=== PATIENT | male | born 1995 | race Caucasian/White ===

== ENCOUNTER 2025-01-03 10:41 | Inpatient (IN) | payer OTHER ==
[~2025-01-03] VITALS: Ht 182.9 cm; Wt 90.9 kg
[2025-01-03] MEDS: NICOTINE 14 MG/24 HR TRANSDERMAL TD SCH (09:00)
[2025-01-03] MEDS: SERTRALINE HCL 25 MG TABLET PO SCH (09:00)
[2025-01-03] MEDS ORDERED: SERT25TA85 PO (11:20)
[2025-01-03 11:25] LABS: PLATELET COUNT, AUTOMATED 301 10^3/uL (150-450)
[2025-01-03 11:44] LABS: AMPHETAMINES LEVEL URINE NEGATIVE (NEGATIVE)
[2025-01-03 11:45] LABS: BARBITURATES URINE NEGATIVE (NEGATIVE); BENZODIAZEPINES URINE NEGATIVE (NEGATIVE); CANNABINOIDS URINE NEGATIVE (NEGATIVE); COCAINE METABOLITE URINE NEGATIVE (NEGATIVE); METHADONE URINE NEGATIVE (NEGATIVE); OPIATES URINE NEGATIVE (NEGATIVE); PHENCYCLIDINE URINE NEGATIVE (NEGATIVE)
[2025-01-03 11:47] LABS: ETHYL ALCOHOL (ETHANOL) < 0.003 % (0.000-0.010)
[2025-01-03 11:49] LABS: ALT/SGPT 28 U/L (7.0-40); AST/SGOT 38 U/L (<34); CALCIUM LEVEL 9.3 MG/DL (8.5-10.1); CARBON DIOXIDE LEVEL 29 MMOL/L (20-31); CHLORIDE LEVEL 104 MMOL/L (98-107); CREATININE FOR GFR 1.24 MG/DL (0.70-1.30); GLOMERULAR FILTRATION RATE 80.2 (>60); POTASSIUM SERUM 4.2 MMOL/L (3.5-5.1); SALICYLATE LEVEL < 3.0 MG/DL (<30); SODIUM LEVEL 144 MMOL/L (136-145)
[2025-01-03] MEDS ORDERED: HOME MED LIST COMPLETE! XX SCH (12:45)
[2025-01-03] MEDS ORDERED: MAALOX 30 ML SUSP *UDC PO PRN (13:00)
[2025-01-03] MEDS ORDERED: OLANZapine 5 MG TAB PO PRN (13:00)
[2025-01-03] MEDS ORDERED: MOM 30 ML SUSPENSION UDC PO PRN (13:00)
[2025-01-03] MEDS ORDERED: IBUPROFEN 400 MG TAB PO PRN (13:00)
[2025-01-03] MEDS ORDERED: LORazepam 1 MG TAB PO PRN (13:00)
[2025-01-03] MEDS ORDERED: ZOLO100T PO (13:29)
[2025-01-03] MEDS: HALOPERIDOL 5 MG TAB PO PRN (21:23)
[2025-01-04 06:31] VITALS: BP 139/61; TEMP 97.2; O2SAT 98
[2025-01-04 11:20] VITALS: BP 119/53
[2025-01-04] MEDS: busPIRone 5 MG TAB PO SCH (11:20)
[2025-01-04] MEDS: THIAMINE 100 MG TAB PO SCH (11:20)
[2025-01-04] MEDS: SERTRALINE HCL 25 MG TABLET PO ONE (11:20)
[2025-01-04] MEDS: MULTIVITAMINS/MINERALS THERAP 1 TAB PO SCH (11:20)
[2025-01-04] MEDS: FOLIC ACID 1 MG TAB PO SCH (11:21)
[2025-01-04 14:27] VITALS: BP 110/63
[2025-01-04 15:01] VITALS: BP 112/55
[2025-01-04 21:15] VITALS: BP 119/57
[2025-01-05 06:42] VITALS: BP 114/56
[2025-01-05 06:43] VITALS: BP 114/56; TEMP 97.3; O2SAT 98
[2025-01-05] MEDS: SERTRALINE HCL 50 MG TAB PO SCH (08:50)
[2025-01-05 13:13] VITALS: BP 118/62
[2025-01-05 15:19] VITALS: BP 115/60; TEMP 98.1; O2SAT 98
[2025-01-05] MEDS: traZODone 50 MG TAB PO PRN (20:17)
[2025-01-05 21:33] VITALS: BP 143/66
[2025-01-06 06:00] VITALS: BP 109/53
[2025-01-06 06:39] VITALS: BP 109/53; TEMP 97.2; O2SAT 97
[2025-01-06] MEDS: SERTRALINE HCL 50 MG TAB PO SCH (08:11)
[2025-01-06 15:00] VITALS: BP 118/59; TEMP 97.7; O2SAT 98
[2025-01-06 16:39] VITALS: BP 118/57
[2025-01-06 22:04] VITALS: BP 110/57
[2025-01-07 06:37] VITALS: BP 96/70; TEMP 97.7; O2SAT 100
[2025-01-07 06:44] VITALS: BP 98/70
[2025-01-07] MEDS: SERTRALINE 100 MG TAB PO SCH (08:26)
[2025-01-07] MEDS: ACETAMINOPHEN 325 MG TAB PO PRN (09:17)
[2025-01-07 09:24] VITALS: BP 122/70
[2025-01-07 15:15] VITALS: BP 116/68; TEMP 98.3; O2SAT 100
[2025-01-08 06:35] VITALS: BP 107/56; TEMP 98.9; O2SAT 96
[2025-01-08 14:52] VITALS: BP 128/61; TEMP 98.4; O2SAT 99
[2025-01-08] MEDS: EXCEDRIN MIGRAINE TABLET PO PRN (21:33)
[2025-01-09 06:36] VITALS: BP 137/60; TEMP 100.1; O2SAT 97
[2025-01-09 06:50] VITALS: TEMP 98.6
[2025-01-09 15:25] VITALS: BP 121/71; TEMP 98.3; O2SAT 98
[2025-01-10 06:31] VITALS: BP 120/56; TEMP 98.3; O2SAT 97
[2025-01-10] MEDS: SUMAtriptan SUCCINATE 50MG TABLET PO ONE (09:13)
[2025-01-10] MEDS ORDERED: SUMAtriptan SUCCINATE 50MG TABLET PO PRN (10:40)
[2025-01-10 15:34] VITALS: BP 128/60; TEMP 97.8; O2SAT 99
[2025-01-11 06:25] VITALS: BP 118/54; TEMP 97.9; O2SAT 97
[2025-01-11] MEDS ORDERED: BUSP5TA PO (08:38)
[2025-01-11] MEDS ORDERED: IMIT50TA PO (08:38)
[2025-01-11] MEDS ORDERED: ZOLO100T PO (08:38)
[2025-01-11] MEDS ORDERED: THERTAB19 PO (08:38)
[2025-01-11] MEDS ORDERED: TRAZ-252 PO (08:39)
== END 2025-01-11 12:04 | disposition home or self-care (01) | DRG 885 ==
LOC: M ED 10:41 → M ED INP 13:00 → M PSY 15:30
PROVIDERS: ADMIT Internal Medicine; ATTEND Internal Medicine
DX: F33.2 Major depressive disorder, recurrent severe without psychotic features (principal); R45.851 Suicidal ideations; Z56.82 Military deployment status; F10.10 Alcohol abuse, uncomplicated; D72.829 Elevated white blood cell count, unspecified; R74.01 Elevation of levels of liver transaminase levels; Z79.899 Other long term (current) drug therapy